=== PATIENT | female | born 1955 | race African-American/Black ===

== ENCOUNTER 2017-11-18 21:27 | Observation (INO) | payer BC, OTHER ==
[2017-11-18] MEDS ORDERED: diphenhydrAMINE 50 MG/ML VIAL ONE (21:52)
[2017-11-18] MEDS ORDERED: Water For Inject, Bacteriostat 30 ML ONE (21:52)
[2017-11-18] MEDS ORDERED: methylPREDNISolone Sod Succ/PF 125 MG/2 ML VIAL ONE (21:52)
[2017-11-18] MEDS ORDERED: Famotidine/PF 20 mg/2ml Vial ONE (21:52)
[2017-11-18 21:54] LABS: Mean Corpuscular HGB CONC 30.7 g/dL (32.0-36.0); Mean Corpuscular Hemoglobin 21.2 pg (27.0-31.0); Mean Corpuscular Volume 69.3 fl (81.0-99.0); Mean Platelet Volume 6.8 fL (7.4-10.4); Platelet Count 312 thou/uL (130-400); Red Blood Cell (RBC) Count 5.18 mill/uL (4.20-5.40); White Blood Cell (WBC) Count 7.7 thou/uL (4.8-10.8)
[2017-11-18 22:00] LABS: #Basophils 0.1 thou/uL (0.0-0.2); #Eosinphils 0.1 thou/uL (0.0-0.7); #Lymphocytes 3.2 thou/uL (1.20-3.40); #Monocytes 0.4 thou/uL (0.11-0.59); %Basophils 1.3 % (0.0-1.0); %Eosinophils 1.2 % (0.0-10.0); %Lymphocytes 41.1 % (21.0-51.0); %Monocytes 5.3 % (0.0-10.0); %Neutrophils 51.2 % (42.0-75.0); Anisocytosis SLIGHT = 6-15 cells (100X) (0-5/hpf); MDiff Complete? YES; Microcytosis SLIGHT = 6-15 cells (100X) (0-5/hpf)
[2017-11-18 22:08] LABS: Anion Gap 18 mmol/L (10-20); BUN (Urea Nitrogen) 44 mg/dL (9.8-20.1); Calc. Creatinine Clearance 0 mL/min (70-130); Calcium 10.6 mg/dL (7.8-10.44); Carbon Dioxide 24 mmol/L (23-31); Chloride 104 mmol/L (98-107); Estimated GFR-MDRD 39; Glucose 231 mg/dL (80-115); Potassium 4.5 mmol/L (3.5-5.1); Sodium 141 mmol/L (136-145)
[2017-11-19 00:21] VITALS: BMI 27.6
[2017-11-19] MEDS ORDERED: Dextrose 5% in Water 1,000 ML IV PRN (01:38)
[2017-11-19] MEDS ORDERED: HumaLOG 300 UNITS/3 ML VIAL SC PRN (01:38)
[2017-11-19] MEDS ORDERED: Dextrose 50% Abboject 50 ML SYRINGE SLOW IVP PRN (01:38)
[2017-11-19] MEDS: Sodium Chloride 0.9% 1,000 ML IV SCH ×2 (02:28→11:28)
[2017-11-19 04:52] LABS: #Neutrophils 7.6 thou/uL (1.40-6.50); %Basophils 0.1 % (0.0-1.0); %Eosinophils 0.1 % (0.0-10.0); %Lymphocytes 11.8 % (21.0-51.0); %Monocytes 0.3 % (0.0-10.0); %Neutrophils 87.7 % (42.0-75.0); Hemoglobin 10.7 g/dL (12.0-16.0); Mean Corpuscular HGB CONC 32.5 g/dL (32.0-36.0); Mean Corpuscular Hemoglobin 22.7 pg (27.0-31.0); Mean Corpuscular Volume 69.6 fl (81.0-99.0); Mean Platelet Volume 7.9 fL (7.4-10.4); Platelet Count 278 thou/uL (130-400); RBC Distribution Width 13.4 % (11.5-14.5); Red Blood Cell (RBC) Count 4.71 mill/uL (4.20-5.40); White Blood Cell (WBC) Count 8.7 thou/uL (4.8-10.8)
[2017-11-19 05:05] LABS: ALT (SGPT) 12 U/L (8-55); AST (SGOT) 12 U/L (5-34); Albumin 4.2 g/dL (3.4-4.8); Alkaline Phosphatase 49 U/L (40-150); Anion Gap 13 mmol/L (10-20); BUN (Urea Nitrogen) 44 mg/dL (9.8-20.1); Bilirubin, Total 0.2 mg/dL (0.2-1.2); Calc. Creatinine Clearance 45 mL/min (70-130); Carbon Dioxide 23 mmol/L (23-31); Chloride 106 mmol/L (98-107); Estimated GFR-MDRD 45; Glucose 267 mg/dL (80-115); Potassium 4.9 mmol/L (3.5-5.1); Protein, Total 7.2 g/dL (6.0-8.3); Sodium 137 mmol/L (136-145)
[2017-11-19] MEDS: diphenhydrAMINE 12.5 MG/5 ML UDCUP PO SCH ×2 (05:45→11:30)
[2017-11-19] MEDS ORDERED: glyBURIDE 5 MG TAB PO SCH (08:00)
[2017-11-19] MEDS ORDERED: metFORMIN 500 MG TAB PO SCH (08:00)
[2017-11-19] MEDS ORDERED: predniSONE 20 MG TAB PO SCH (08:00)
[2017-11-19] MEDS ORDERED: Famotidine 20 MG TAB PO SCH (09:00)
[2017-11-19] MEDS ORDERED: Heparin 5,000 UNITS/ML VIAL SC SCH (09:00)
[2017-11-19] MEDS ORDERED: Triamterene/Hydrochlorothiazide 37.5 mg/25 mg Tablet PO SCH (09:00)
[2017-11-19] MEDS ORDERED: Zantac Syrup 75 MG/5 ML UDCUP PO SCH (09:00)
--- NOTE | 2017-11-19 11:24 | HP ---
PRIMARY CARE PHYSICIAN: Dr. Ley. CHIEF COMPLAINT: Swelling of the upper lip. HISTORY OF PRESENT ILLNESS: A 61-year-old female with a known past medical history of hypertension, type 2 diabetes, who presents after acute swelling of her upper lip while eating dinner at [facility]. The patient states that she had a burger which she's had before in the past but she felt was slightly undercooked, subsequently she had swelling of her upper lip that prompted her presentation to the emergency department. In the emergency department, she was given a dose of steroid, Benadryl, Zantac. At the time of my evaluation on the floor, the patient states that her swelling significantly improved. During this entire ordeal, the patient denies having had any difficulty with swallowing her own saliva. Denies any difficulty with breathing. Denies any changes to her voice. REVIEW OF SYSTEMS: As per HPI. Constitutional: No recent weight fluctuations. No fevers, no chills. HEENT: No new headaches, dizziness or lightheadedness. Swelling as described above. Cardiovascular: No chest pain or chest pressure. No dyspnea with exertion. No left-sided arm numbness or tingling. No episodes of diaphoresis. Respiratory: No difficulty breathing. No new cough. No new sinus congestion or postnasal drip. Gastrointestinal: No nausea, no vomiting, no abdominal pain, no issues with diarrhea. No one else had a similar reaction as the patient during supper. Musculoskeletal: No new myalgias or arthralgias. Skin: No new rashes or lymphadenopathy. Remainder of the review of systems otherwise negative. PAST MEDICAL HISTORY: As per above, 1. Notable for hypertension. 2. Insulin-dependent type 2 diabetes. 3. Status post right leg surgery as a child. HOME MEDICATIONS: Please see EMR for full details. Her list includes triamterene/hydrochlorothiazide 1 cap p.o. daily, glyburide/metformin 2 tabs p.o. b.i.d., lisinopril 20 mg p.o. daily, Lantus 4 units at bedtime. The patient denies any recent changes to her regimen. She has not had any new elzt-wwu-xbroric herbals or vitamins added to her regimen in last month. She has been on lisinopril for more than 3 months. FAMILY HISTORY: The patient denies any prior similar history of family members with swelling or allergies with similar reactions. SOCIAL HISTORY: The patient denies any tobacco, alcohol or illicit drug use. Endorses to be in full code at this point in time. PHYSICAL EXAMINATION: VITAL SIGNS: Temperature of 97.8, heart rate of 108, blood pressure 117/61, satting 96% on room air with respirations of 18. GENERAL: The patient is awake, alert, conversant, oriented x3, no acute distress, seated in the hospital bed. HEENT: Normocephalic, atraumatic. Moist mucous membranes. Equal ocular motions are intact. has subjective swelling, nonedematous of her upper lip. No erythema noted. No urticaria. NECK: No submandibular or cervical lymphadenopathy. CARDIOVASCULAR: S1, S2. No murmurs, rubs or gallops. Pulses 2+ bilateral upper extremities. RESPIRATORY: Reasonable air movement. No wheezes, rales or rhonchi. No stridorous sounds noted. No conversational dyspnea. ABDOMEN: Positive bowel sounds, soft, nontender to palpation. MUSCULOSKELETAL: Moving all 4 extremities. LABORATORY DATA AND IMAGING: WBC 7.7, hemoglobin 11.0, hematocrit 39.5, platelets 312. Sodium 141, potassium 4.5, chloride 104, bicarb 24, BUN 44, creatinine 1.61, glucose 231, calcium 10.6. ASSESSMENT AND PLAN: A 61-year-old female presenting with upper lip swelling. 1. Upper lip swelling, concern for angioedema. Continue with management as per above. Continue with prednisone, Benadryl, Pepcid. I discussed the plan with the patient. Discontinue lisinopril, which could be a potential offending agent. Closely monitor blood pressure. Check CRP, ESR, C4 levels. 2. Hypertension. See discussion above. Continue the remainder of the patient' s home medications for blood pressure and closely monitor. Additional medication regimen adjustment as needed. 3. Type 2 diabetes, insulin dependence. Continue the patient on home regimen with sliding scale insulin if needed given the addition of prednisone which may elevate blood glucose levels. 4. Acute kidney injury, unknown baseline, BUN of 44, creatinine 1.61. Initiate the patient on IV fluid normal saline 100 mL an hour. Recheck BMP in the morning. 5. Diet: Diabetic, as tolerated. 6. Activity: Out of bed as tolerated. 7. Deep venous thrombosis prophylaxis, heparin. Thank you for asking me to care for your patient. Questions or concerns, contact me in [facility]. TIARRA
--- NOTE | 2017-11-19 11:38 | PDOC.EVN ---
Event Note - Event Note Event Note: Pt seen and examined. reports that lip swelling is much better.no SOB/difficulty w speech/swollowing cont H1/H2 blockers and po steroids. if continues to improve,DC home later today
[2017-11-19 15:40] VITALS: BP 106/67; TEMP 98.2
[2017-11-19] MEDS ORDERED: INSULIN GLARGINE HUM REC ANLOG SQ SCH (21:00)
[2017-11-19] MEDS ORDERED: Insulin Detemir 100 UNITS/ML 4 UNITS in Pre-Filled Syringe 1 EACH SC SCH (21:00)
--- NOTE | 2017-11-20 00:21 | DIS ---
DATE OF ADMISSION: 11/19/2017 DATE OF DISCHARGE: 11/19/2017 CONDITION AT THE TIME OF DISCHARGE: Stable and improved. DISCHARGE DIAGNOSES: 1. Angioedema, most likely secondary to lisinopril use. 2. History of hypertension. 3. Insulin-dependent diabetes mellitus. PRIMARY CARE PHYSICIAN: Dr. Orlando Ley. DISCHARGE MEDICATIONS: Pepcid 20 mg p.o. b.i.d. for 5 days, Benadryl 12.5 mg p.o. q.6 hours for 2 mo re days and Medrol Dosepak. HISTORY OF PRESENTING ILLNESS: Ms. Peterson was admitted earlier this morning for complaints of sudden onset of swelling of her lip. She was diagnosed as angioedema likely secondary to lisinopril in the emergency room and was given IV steroids, IV Benadryl and IV Pepcid and was admitted by my colleague , Dr. Mckeon. Please see admission history and physical for further details. HOSPITAL COURSE: The patient had significant improvement in her symptoms throughout the rest of the day and is back to baseline and is eager to go home. I have seen and evaluated the patient. Her vit al signs at this time are temperature 98.4, heart rate 118, respirations 16, saturating 96% on room a ir, blood pressure 117/60. No acute distress, awake, alert, oriented x3. HEENT examination, still s ome residual swelling on the upper lip without any evidence of tongue swelling or laryngopharyngeal s welling. No dysphagia or dysarthria or dysphonia noticed. No respiratory distress noticed. At this time, the patient is stable to be discharged home with outpatient followup with primary care physician in 5-6 days. LABORATORY EXAMINATION: Her creatinine was found to be elevated at 1.61 without any baseline. Disch arge creatinine is 1.43. She most likely has chronic kidney disease attributable to diabetes and/or hypertension. This will need to be followed up in the outpatient setting as well.
== END 2017-11-19 16:06 | disposition home or self-care (01) ==
LOC: SCSER 21:27 → 2SW 23:25
PROVIDERS: ADMIT Internal Medicine; ATTEND Internal Medicine
DX: T78.3XXA Angioneurotic edema, initial encounter (principal); I10 Essential (primary) hypertension; E11.9 Type 2 diabetes mellitus without complications; N17.9 Acute kidney failure, unspecified; Z79.4 Long term (current) use of insulin; Z79.899 Other long term (current) drug therapy; Z88.8 Allergy status to other drugs, medicaments and biological substances
CPT/HCPCS: 36415; 36416; 80048; 80053; 85025; 85652; 86140; 90471; 90732; 96361; 96374; 96375; A4216; G0009; G0378; J1200; J1644; J1815; J2930; J7506; S0028

== ENCOUNTER 2017-12-06 17:09 | Emergency (ER) | payer BC | END 2017-12-06 19:18 | disposition home or self-care (01) | LOC: ERS 17:09 | DX: I10 Essential (primary) hypertension (principal); E11.9 Type 2 diabetes mellitus without complications; Z79.4 Long term (current) use of insulin; Z79.899 Other long term (current) drug therapy; Z87.891 Personal history of nicotine dependence | CPT/HCPCS: 99281 ==

== ENCOUNTER 2022-04-16 20:46 | Inpatient (IN) | payer BC ==
[~2022-04-16 20:46] MED LIST: Iopamidol-370 76% 500 ML 1 ML ONE
[2022-04-16] MEDS ORDERED: Acetaminophen 325 MG Suppository ONE (21:38)
[2022-04-16] MEDS ORDERED: Cefepime 2 GM VIAL ONE (21:38)
[2022-04-16] MEDS ORDERED: Vancomycin 1 GM/200 ML BAG ONE (21:38)
[2022-04-16 21:52] LABS: #Monocytes 0.9 thou/uL (0.11-0.59); #Neutrophils 6.2 thou/uL (1.40-6.50); %Basophils 0.1 % (0.0-1.0); %Lymphocytes 12.3 % (21.0-51.0); %Monocytes 10.6 % (0.0-10.0); Hemoglobin 11.5 g/dL (12.0-16.0); Mean Corpuscular HGB CONC 32.2 g/dL (32.0-36.0); Mean Corpuscular Hemoglobin 22.2 pg (27.0-31.0); Mean Corpuscular Volume 68.8 fL (78.0-98.0); Mean Platelet Volume 11.4 fL (7.4-10.4); Platelet Count 199 thou/uL (130-400); RBC Distribution Width 14.1 % (11.5-14.5); White Blood Cell (WBC) Count 8.1 thou/uL (4.8-10.8)
[2022-04-16 22:01] LABS: INR-International Normal Ratio 1.1; PTT 30.7 sec (22.9-36.1); Prothrombin Time 13.9 sec (12.0-14.7)
[2022-04-16 22:11] LABS: Elliptocytes SLIGHT = 2-5 cells (100X) (0-1/hpf); MDiff Complete? YES; Microcytosis MODERATE=15-30 cells (100X) (0-5/hpf); Platelet Morphology Comment Appears Adequate; Target Cells MODERATE= 6-15 cells (100X) (0-1/hpf)
[2022-04-16 22:13] LABS: ALT (SGPT) 56 U/L (8-55); AST (SGOT) 53 U/L (5-34); Albumin 4.5 g/dL (3.4-4.8); Alkaline Phosphatase 40 U/L (40-110); Anion Gap 19 mmol/L (10-20); BUN (Urea Nitrogen) 26 mg/dL (9.8-20.1); Bilirubin, Total 0.3 mg/dL (0.2-1.2); Calc. Creatinine Clearance 0 mL/min (70-130); Calcium 10.6 mg/dL (7.8-10.44); Carbon Dioxide 22 mmol/L (23-31); Chloride 105 mmol/L (98-107); Estimated GFR 40; Globulin 3.3 g/dL (2.4-3.5); Glucose 184 mg/dL (80-115); Potassium 4.3 mmol/L (3.5-5.1); Protein, Total 7.8 g/dL (5.8-8.1); Sodium 142 mmol/L (136-145)
[2022-04-16 22:17] LABS: Bilirubin Negative (Negative); Blood, Urine Negative (Negative); Clarity Clear (Clear); Glucose, Urine (Dipstick) 150 mg/dL (Negative); Ketone, Urine Negative (Negative); Leukocyte Negative Leu/uL (Negative); Nitrite Negative (Negative); Protein, Urine (Dipstick) Negative (Neg-Trace); Specific Gravity, Urine 1.017 (1.002-1.036); Urobilinogen Normal mg/dL (Less than 2)
[2022-04-17 00:30] LABS: SARS-CoV-2 NAA Rapid Test DETECTED (NotDetected)
[2022-04-17] MEDS ORDERED: Ondansetron PF 4 MG/2 ML Vial IVP PRN (01:06)
[2022-04-17] MEDS ORDERED: Acetaminophen 325 MG TAB PO PRN (01:06)
[2022-04-17] MEDS ORDERED: Dextrose 50% Abboject 50 ML SYRINGE SLOW IVP PRN (01:14)
[2022-04-17] MEDS ORDERED: Dextrose 5% in Water 1,000 ML IV PRN (01:14)
[2022-04-17] MEDS ORDERED: Sodium Chloride 0.9% 1,000 ML IV SCH ×2 (01:15→10:45)
[2022-04-17 01:18] LABS: Lactic Acid 2.3 mmol/L (0.5-2.2)
[2022-04-17] MEDS ORDERED: Bisacodyl 10 MG SUPP PR SCH (01:30)
[2022-04-17 03:47] LABS: #Lymphocytes 1.1 thou/uL (1.20-3.40); #Monocytes 1.1 thou/uL (0.11-0.59); #Neutrophils 5.4 thou/uL (1.40-6.50); %Basophils 0.2 % (0.0-1.0); %Eosinophils 0.1 % (0.0-10.0); %Lymphocytes 14.2 % (21.0-51.0); %Monocytes 13.9 % (0.0-10.0); %Neutrophils 71.6 % (42.0-75.0); Hemoglobin 10.7 g/dL (12.0-16.0); Mean Corpuscular HGB CONC 33.2 g/dL (32.0-36.0); Mean Corpuscular Hemoglobin 23.1 pg (27.0-31.0); Mean Corpuscular Volume 69.6 fL (78.0-98.0); Mean Platelet Volume 11.5 fL (7.4-10.4); Platelet Count 174 thou/uL (130-400); Red Blood Cell (RBC) Count 4.62 mill/uL (4.20-5.40); White Blood Cell (WBC) Count 7.6 thou/uL (4.8-10.8)
[2022-04-17 03:51] VITALS: BMI 23.9
[2022-04-17 04:07] LABS: ALT (SGPT) 60 U/L (8-55); AST (SGOT) 64 U/L (5-34); Albumin 3.7 g/dL (3.4-4.8); Alkaline Phosphatase 32 U/L (40-110); Anion Gap 17 mmol/L (10-20); BUN (Urea Nitrogen) 24 mg/dL (9.8-20.1); Bilirubin, Total 0.2 mg/dL (0.2-1.2); Calc. Creatinine Clearance 45 mL/min (70-130); Calcium 9.3 mg/dL (7.8-10.44); Carbon Dioxide 19 mmol/L (23-31); Chloride 107 mmol/L (98-107); Estimated GFR 43; Globulin 2.7 g/dL (2.4-3.5); Glucose 345 mg/dL (80-115); Potassium 3.7 mmol/L (3.5-5.1); Protein, Total 6.4 g/dL (5.8-8.1); Sodium 139 mmol/L (136-145)
[2022-04-17 04:12] LABS: Troponin I 0.013 ng/mL (< 0.028)
[2022-04-17] MEDS: HumaLOG 300 UNITS/3 ML VIAL SC PRN ×2 (06:45→21:28)
[2022-04-17 07:29] LABS: Troponin I 0.025 ng/mL (< 0.028)
[2022-04-17] MEDS: Docusate 100 MG CAP PO SCH ×2 (09:08→21:27)
[2022-04-17] MEDS: Ascorbic Acid 500 mg Chewable Tablet PO SCH (09:08)
[2022-04-17] MEDS: Zinc Sulfate 220 MG CAP PO SCH (09:09)
[2022-04-17] MEDS: Polyethylene Glycol 3350 17 GM Packet PO SCH (09:09)
[2022-04-17] MEDS: Enoxaparin Sodium 40 MG/0.4 ML SYRINGE SC SCH (09:09)
[2022-04-17] MEDS: Insulin Glargine 30 UNITS/0.3 ML VIAL SC SCH ×2 (09:09→21:27)
[2022-04-17] MEDS ORDERED: Piperacillin/Tazobactam 3.375 GM in Sodium Chloride 0.9% 100 ML IVPB SCH ×2 (13:45→18:00)
[2022-04-18 04:54] LABS: #Basophils 0.1 thou/uL (0.0-0.2); #Lymphocytes 2.2 thou/uL (1.20-3.40); #Monocytes 0.6 thou/uL (0.11-0.59); #Neutrophils 2.1 thou/uL (1.40-6.50); %Basophils 1.3 % (0.0-1.0); %Eosinophils 0.1 % (0.0-10.0); %Lymphocytes 44.4 % (21.0-51.0); %Neutrophils 43.2 % (42.0-75.0); Mean Corpuscular HGB CONC 32.7 g/dL (32.0-36.0); Mean Corpuscular Hemoglobin 22.5 pg (27.0-31.0); Mean Corpuscular Volume 68.9 fL (78.0-98.0); Mean Platelet Volume 11.7 fL (7.4-10.4); Platelet Count 191 thou/uL (130-400); RBC Distribution Width 14.2 % (11.5-14.5); Red Blood Cell (RBC) Count 5.34 mill/uL (4.20-5.40)
[2022-04-18 05:17] LABS: ALT (SGPT) 90 U/L (8-55); AST (SGOT) 76 U/L (5-34); Albumin 4.1 g/dL (3.4-4.8); Alkaline Phosphatase 38 U/L (40-110); Anion Gap 16 mmol/L (10-20); BUN (Urea Nitrogen) 16 mg/dL (9.8-20.1); Bilirubin, Total 0.3 mg/dL (0.2-1.2); Calc. Creatinine Clearance 52 mL/min (70-130); Calcium 10.1 mg/dL (7.8-10.44); Carbon Dioxide 24 mmol/L (23-31); Chloride 107 mmol/L (98-107); Estimated GFR 50; Glucose 224 mg/dL (80-115); Potassium 3.3 mmol/L (3.5-5.1); Protein, Total 7.1 g/dL (5.8-8.1); Sodium 144 mmol/L (136-145)
[2022-04-18] MEDS: Piperacillin/Tazobactam 3.375 GM in Sodium Chloride 0.9% 100 ML IVPB SCH ×3 (05:39→21:24)
[2022-04-18] MEDS: Ascorbic Acid 500 mg Chewable Tablet PO SCH (10:44)
[2022-04-18] MEDS: Docusate 100 MG CAP PO SCH ×2 (10:44→21:23)
[2022-04-18] MEDS: Insulin Glargine 30 UNITS/0.3 ML VIAL SC SCH ×2 (10:44→21:23)
[2022-04-18] MEDS: Enoxaparin Sodium 40 MG/0.4 ML SYRINGE SC SCH (10:45)
[2022-04-18] MEDS: HumaLOG 300 UNITS/3 ML VIAL SC PRN ×3 (10:46→21:32)
[2022-04-18] MEDS: Zinc Sulfate 220 MG CAP PO SCH (10:49)
[2022-04-18] MEDS: Polyethylene Glycol 3350 17 GM Packet PO SCH (10:49)
[2022-04-18] MEDS ORDERED: Potassium Chloride 20 MEQ TAB PO SCH (12:15)
[2022-04-18] MEDS ORDERED: Electrolyte Replacement Protocol 1 EACH FS SCH (12:15)
[2022-04-18 12:30] LABS: Magnesium 1.4 mg/dL (1.6-2.6)
[2022-04-18] MEDS ORDERED: (RENAL) NIRMATRELVIR 150 MG/RITONAVIR 100 MG TABLET PO SCH (13:15)
[2022-04-18] MEDS ORDERED: Magnesium Sulfate In Water 4 GM in Premix Bag 1 BAG IVPB SCH (13:45)
[2022-04-18] MEDS ORDERED: Melatonin 3 MG TAB PO SCH (21:00)
[2022-04-18] MEDS ORDERED: Latanoprost 0.005% Ophth Soln 2.5 ml Bottle EA EYE SCH (21:00)
[2022-04-18] MEDS: (RENAL) NIRMATRELVIR 150 MG/RITONAVIR 100 MG TABLET PO SCH (21:24)
[2022-04-19 04:47] LABS: Anion Gap 14 mmol/L (10-20); BUN (Urea Nitrogen) 14 mg/dL (9.8-20.1); Calc. Creatinine Clearance 52 mL/min (70-130); Calcium 9.9 mg/dL (7.8-10.44); Carbon Dioxide 26 mmol/L (23-31); Chloride 106 mmol/L (98-107); Estimated GFR 51; Glucose 97 mg/dL (80-115); Potassium 3.6 mmol/L (3.5-5.1); Sodium 142 mmol/L (136-145)
[2022-04-19] MEDS: Piperacillin/Tazobactam 3.375 GM in Sodium Chloride 0.9% 100 ML IVPB SCH ×2 (05:23→14:08)
[2022-04-19] MEDS ORDERED: Magnesium 2 GM/50 ML(in water) 2 GM in Premix Bag 1 BAG IVPB SCH (08:00)
[2022-04-19] MEDS ORDERED: Fenofibrate Nanocrystallized 145 MG TAB PO SCH (09:00)
[2022-04-19] MEDS: (RENAL) NIRMATRELVIR 150 MG/RITONAVIR 100 MG TABLET PO SCH (09:21)
[2022-04-19] MEDS: Ascorbic Acid 500 mg Chewable Tablet PO SCH (09:23)
[2022-04-19] MEDS: Insulin Glargine 30 UNITS/0.3 ML VIAL SC SCH (09:23)
[2022-04-19] MEDS: Enoxaparin Sodium 40 MG/0.4 ML SYRINGE SC SCH (09:24)
[2022-04-19] MEDS: Polyethylene Glycol 3350 17 GM Packet PO SCH (09:24)
[2022-04-19] MEDS: Zinc Sulfate 220 MG CAP PO SCH (09:24)
[2022-04-19] MEDS: Docusate 100 MG CAP PO SCH (09:24)
[2022-04-19 13:53] VITALS: BP 132/74; TEMP 97
== END 2022-04-19 13:45 | disposition home or self-care (01) | DRG 871 ==
LOC: ERS 20:46 → IMCU/EMU 04-17 00:58 → 2NO 04-17 19:00
PROVIDERS: ADMIT Family Medicine; ATTEND Family Medicine
PROC: 3E03329 Introduction of Other Anti-infective into Peripheral Vein, Percutaneous Approach (ICD-10-PCS; principal; 2022-04-17)
PROC: 8E0ZXY6 Isolation (ICD-10-PCS; 2022-04-17)
DX: A41.89 Other specified sepsis (principal); G93.41 Metabolic encephalopathy; U07.1 COVID-19; N17.9 Acute kidney failure, unspecified; G30.9 Alzheimer's disease, unspecified; F02.80 Dementia in other diseases classified elsewhere, unspecified severity, without behavioral disturbance, psychotic disturbance, mood disturbance, and anxiety; E11.69 Type 2 diabetes mellitus with other specified complication; K59.00 Constipation, unspecified; E78.5 Hyperlipidemia, unspecified; N18.30 Chronic kidney disease, stage 3 unspecified; E11.22 Type 2 diabetes mellitus with diabetic chronic kidney disease; I12.9 Hypertensive chronic kidney disease with stage 1 through stage 4 chronic kidney disease, or unspecified chronic kidney disease; G47.00 Insomnia, unspecified; H40.9 Unspecified glaucoma; E87.6 Hypokalemia; E83.42 Hypomagnesemia; Z79.4 Long term (current) use of insulin; Z79.899 Other long term (current) drug therapy; Z88.8 Allergy status to other drugs, medicaments and biological substances
CPT/HCPCS: 36415; 36416; 70450; 71045; 74177; 80048; 80053; 81003; 83605; 83735; 84484; 85025; 85610; 85730; 87040; 87086; 93005; 93010; 94760; J0692; J1650; J1815; J2543; J3370; J3475; J3490; J7050; Q9967; U0002

== ENCOUNTER 2022-04-19 22:14 | Emergency (ER) | payer MEDICARE, BC | END 2022-04-19 22:49 | disposition home or self-care (01) | LOC: ERS 22:14 | DX: E11.65 Type 2 diabetes mellitus with hyperglycemia (principal); I10 Essential (primary) hypertension; Z87.891 Personal history of nicotine dependence; Z79.4 Long term (current) use of insulin; Z79.899 Other long term (current) drug therapy | CPT/HCPCS: 36416; 99285 ==

== ENCOUNTER 2025-06-24 07:50 | Inpatient (IN) | payer BC, MEDICARE ==
[2025-06-24 09:25] LABS: INR-International Normal Ratio 1.1; PTT 30.6 sec (22.9-36.1); Prothrombin Time 14.8 sec (12.0-14.7)
[2025-06-24 09:42] LABS: ALT (SGPT) 40 U/L (Less than 34); AST (SGOT) 42 U/L (11-34); Albumin 3.4 g/dL (3.1-4.5); Alkaline Phosphatase 34 U/L (40-110); Anion Gap 13 mmol/L (10-20); BUN (Urea Nitrogen) 25 mg/dL (9.8-20.1); Bilirubin, Total 0.3 mg/dL (0.3-1.2); Calc. Creatinine Clearance 0 mL/min (70-130); Calcium 11.0 mg/dL (7.8-10.44); Carbon Dioxide 24 mmol/L (23-31); Chloride 124 mmol/L (98-107); Globulin 3.1 g/dL (2.4-3.5); Glucose 171 mg/dL (83-110); Lipase 41 U/L (8-78); Magnesium 2.1 mg/dL (1.6-2.6); Potassium 3.9 mmol/L (3.5-5.1); Sodium 157 mmol/L (136-145)
[2025-06-24 11:10] LABS: #Basophils 0.03 10x3/uL (0.0-0.2); #Eosinophils 0.04 10x3/uL (0.0-0.7); #Monocytes 0.32 10x3/uL (0.11-0.59); #Neutrophils 4.70 10x3/uL (1.40-6.50); %Basophils 0.4 % (0.0-1.0); %Eosinophils 0.6 % (0.0-10.0); %Lymphocytes 28.2 % (21.0-51.0); %Monocytes 4.5 % (0.0-10.0); %Neutrophils 65.7 % (42.0-75.0); Hematocrit 29.6 % (36.0-47.0); Hemoglobin 8.9 g/dL (12.0-16.0); Mean Corpuscular Hemoglobin 19.7 pg (27.0-31.0); Mean Corpuscular Volume 65.6 fL (78.0-98.0); Platelet Count 359 10x3/uL (130-400); Red Blood Cell (RBC) Count 4.51 mill/uL (4.20-5.40); White Blood Cell (WBC) Count 7.14 10x3/uL (4.8-10.8)
[2025-06-24 11:31] LABS: Anisocytosis MARKED = >30 cells HPF (0-5); Burr Cells SLIGHT = 2-5 cells HPF (0-1); Macrocytosis MODERATE=16-30 cells HPF (0-5); Microcytosis SLIGHT = 6-15 cells HPF (0-5); Platelet Adequacy Comment Platelets Normal; Polychromasia SLIGHT = 2-3 cells HPF (0-2); Reflex for Review?? YES; Schistocytes MODERATE= 6-15 cells HPF (0-1); Target Cells SLIGHT = 2-5 cells HPF (0-1)
[2025-06-24] MEDS ORDERED: Iopamidol-370 76% 500 ML MDV (1 ML CHARGE) ONE (11:43)
[2025-06-24] MEDS ORDERED: Pantoprazole 40 MG VIAL ONE (12:59)
[2025-06-24] MEDS ORDERED: Glucagon 1 MG/ML KIT IM PRN (14:35)
[2025-06-24] MEDS ORDERED: Ondansetron PF 4 MG/2 ML Vial IVP PRN (14:35)
[2025-06-24] MEDS ORDERED: Dextrose 50% Abboject 50 ML SYRINGE SLOW IVP PRN (14:35)
[2025-06-24 16:17] VITALS: BMI 14.9
[2025-06-24 21:44] LABS: Anion Gap 12 mmol/L (10-20); BUN (Urea Nitrogen) 18 mg/dL (9.8-20.1); Calc. Creatinine Clearance 35 mL/min (70-130); Calcium 10.1 mg/dL (7.8-10.44); Carbon Dioxide 23 mmol/L (23-31); Chloride 122 mmol/L (98-107); Glucose 149 mg/dL (83-110); Potassium 3.4 mmol/L (3.5-5.1); Sodium 154 mmol/L (136-145)
[2025-06-25] MEDS: Melatonin 3 MG TAB PO PRN (00:18)
[2025-06-25] MEDS: Acetaminophen 325 MG TAB PO PRN (00:18)
[2025-06-25 06:04] LABS: #Basophils Less than 0.03 10x3/uL (0.0-0.2); #Eosinophils 0.07 10x3/uL (0.0-0.7); #Monocytes 0.33 10x3/uL (0.11-0.59); #Neutrophils 3.66 10x3/uL (1.40-6.50); %Basophils 0.3 % (0.0-1.0); %Eosinophils 1.1 % (0.0-10.0); %Lymphocytes 34.8 % (21.0-51.0); %Monocytes 5.3 % (0.0-10.0); %Neutrophils 58.3 % (42.0-75.0); Hematocrit 23.1 % (36.0-47.0); Hemoglobin 7.0 g/dL (12.0-16.0); Mean Corpuscular Hemoglobin 19.6 pg (27.0-31.0); Mean Corpuscular Volume 64.5 fL (78.0-98.0); Platelet Count 281 10x3/uL (130-400); Red Blood Cell (RBC) Count 3.58 mill/uL (4.20-5.40); White Blood Cell (WBC) Count 6.27 10x3/uL (4.8-10.8)
[2025-06-25 06:41] LABS: ALT (SGPT) 28 U/L (Less than 34); AST (SGOT) 32 U/L (11-34); Albumin 2.7 g/dL (3.1-4.5); Alkaline Phosphatase 26 U/L (40-110); Anion Gap 10 mmol/L (10-20); BUN (Urea Nitrogen) 20 mg/dL (9.8-20.1); Bilirubin, Total 0.2 mg/dL (0.3-1.2); Calc. Creatinine Clearance 34 mL/min (70-130); Calcium 9.3 mg/dL (7.8-10.44); Carbon Dioxide 25 mmol/L (23-31); Chloride 116 mmol/L (98-107); Globulin 2.8 g/dL (2.4-3.5); Glucose 309 mg/dL (83-110); Iron 38 ug/dL (50-170); Iron Binding Capacity, Total 360 mcg/dL (265-497); Potassium 3.3 mmol/L (3.5-5.1); Sodium 148 mmol/L (136-145)
[2025-06-25 06:43] LABS: Iron 36 ug/dL (50-170); Iron Binding Capacity, Total 361 mcg/dL (265-497)
[2025-06-25] MEDS: Enoxaparin 40 MG (0.4 mL) SYRINGE SC SCH (08:29)
[2025-06-25] MEDS: Aspirin Chewable 81 MG TAB PO SCH (08:29)
[2025-06-25] MEDS: metFORMIN 500 MG TAB PO SCH (08:29)
[2025-06-25] MEDS: Mupirocin 1 GM TUBE TP SCH (08:42)
[2025-06-25] MEDS: Pantoprazole 40 MG VIAL IVP SCH (08:43)
[2025-06-25] MEDS ORDERED: PROPOFOL 200 MG/20 ML VIAL ONE (11:23)
[2025-06-25] MEDS ORDERED: PHENYLEPHRINE-NS 100 MCG/ML 10 ML SYRINGE ONE (11:24)
[2025-06-26 06:55] LABS: Anion Gap 12 mmol/L (10-20); BUN (Urea Nitrogen) 19 mg/dL (9.8-20.1); Calc. Creatinine Clearance 35 mL/min (70-130); Calcium 8.8 mg/dL (7.8-10.44); Carbon Dioxide 19 mmol/L (23-31); Chloride 111 mmol/L (98-107); Glucose 288 mg/dL (83-110); Potassium 3.7 mmol/L (3.5-5.1); Sodium 138 mmol/L (136-145)
[2025-06-26 07:05] LABS: #Basophils Less than 0.03 10x3/uL (0.0-0.2); #Eosinophils 0.11 10x3/uL (0.0-0.7); #Monocytes 0.40 10x3/uL (0.11-0.59); #Neutrophils 4.36 10x3/uL (1.40-6.50); %Basophils 0.3 % (0.0-1.0); %Eosinophils 1.4 % (0.0-10.0); %Lymphocytes 36.6 % (21.0-51.0); %Monocytes 5.2 % (0.0-10.0); %Neutrophils 56.2 % (42.0-75.0); Hematocrit 20.4 % (36.0-47.0); Hemoglobin 6.2 g/dL (12.0-16.0); Mean Corpuscular Hemoglobin 19.3 pg (27.0-31.0); Mean Corpuscular Volume 63.6 fL (78.0-98.0); Platelet Count 249 10x3/uL (130-400); Red Blood Cell (RBC) Count 3.21 mill/uL (4.20-5.40); White Blood Cell (WBC) Count 7.75 10x3/uL (4.8-10.8)
[2025-06-26] MEDS: Enoxaparin 30 MG (0.3 mL) SYRINGE SC SCH (08:36)
[2025-06-26 17:47] LABS: Hematocrit 26.4 % (36.0-47.0); Hemoglobin 8.4 g/dL (12.0-16.0)
[2025-06-27 05:56] LABS: #Basophils Less than 0.03 10x3/uL (0.0-0.2); #Eosinophils 0.14 10x3/uL (0.0-0.7); #Monocytes 0.48 10x3/uL (0.11-0.59); #Neutrophils 4.40 10x3/uL (1.40-6.50); %Basophils 0.3 % (0.0-1.0); %Eosinophils 1.8 % (0.0-10.0); %Lymphocytes 34.2 % (21.0-51.0); %Monocytes 6.2 % (0.0-10.0); %Neutrophils 57.1 % (42.0-75.0); Hematocrit 23.6 % (36.0-47.0); Hemoglobin 7.7 g/dL (12.0-16.0); Mean Corpuscular Hemoglobin 21.9 pg (27.0-31.0); Mean Corpuscular Volume 67.0 fL (78.0-98.0); Platelet Count 253 10x3/uL (130-400); Red Blood Cell (RBC) Count 3.52 mill/uL (4.20-5.40); White Blood Cell (WBC) Count 7.71 10x3/uL (4.8-10.8)
[2025-06-27 06:15] LABS: Anion Gap 10 mmol/L (10-20); BUN (Urea Nitrogen) 12 mg/dL (9.8-20.1); Calc. Creatinine Clearance 42 mL/min (70-130); Calcium 9.3 mg/dL (7.8-10.44); Carbon Dioxide 23 mmol/L (23-31); Chloride 111 mmol/L (98-107); Glucose 270 mg/dL (83-110); Potassium 3.9 mmol/L (3.5-5.1); Sodium 140 mmol/L (136-145)
[2025-06-27] MEDS: Pantoprazole 40 MG DR.TAB PO SCH (08:10)
[2025-06-27 12:30] LABS: Iron 68 ug/dL (50-170); Iron Binding Capacity, Total 410 mcg/dL (265-497)
[2025-06-27 15:59] VITALS: BMI 14.8
[2025-06-27] MEDS: Sodium Ferric Gluconate 250 MG in Sodium Chloride 0.9% 250 ML 250 ML IVPB SCH (17:33)
[2025-06-28 11:10] LABS: Crenated RBC MODERATE= 6-15 cells (100X) (None Seen); Ovalocytes MODERATE= 6-15 cells (100X) (0-1/hpf); Plasma Cells 0 % (0-0); Platelet Adequacy Comment Appears Adequate; Target Cells SLIGHT = 2-5 cells (100X) (0-1/hpf)
[2025-06-28 11:11] LABS: #Basophils Less than 0.03 10x3/uL (0.0-0.2); #Eosinophils 0.05 10x3/uL (0.0-0.7); #Monocytes 0.69 10x3/uL (0.11-0.59); #Neutrophils 9.13 10x3/uL (1.40-6.50); %Basophils 0.2 % (0.0-1.0); %Eosinophils 0.4 % (0.0-10.0); %Lymphocytes 14.2 % (21.0-51.0); %Monocytes 6.0 % (0.0-10.0); %Neutrophils 78.8 % (42.0-75.0); Hematocrit 30.5 % (36.0-47.0); Hemoglobin 10.1 g/dL (12.0-16.0); Mean Corpuscular Hemoglobin 22.1 pg (27.0-31.0); Mean Corpuscular Volume 66.6 fL (78.0-98.0); Platelet Count 156 10x3/uL (130-400); Red Blood Cell (RBC) Count 4.58 mill/uL (4.20-5.40); White Blood Cell (WBC) Count 11.58 10x3/uL (4.8-10.8)
[2025-06-28] MEDS: Nystatin 500,000 UNITS/5 ML UDCUP SSW SCH (13:07)
[2025-06-28 13:32] LABS: Anion Gap 19 mmol/L (10-20); BUN (Urea Nitrogen) 7 mg/dL (9.8-20.1); Calc. Creatinine Clearance 52 mL/min (70-130); Calcium 10.2 mg/dL (7.8-10.44); Carbon Dioxide 20 mmol/L (23-31); Chloride 108 mmol/L (98-107); Glucose 263 mg/dL (83-110); Potassium 4.0 mmol/L (3.5-5.1); Sodium 143 mmol/L (136-145)
[2025-06-29] MEDS: QUEtiapine 25 MG TAB PO SCH (00:58)
[2025-06-29 06:36] LABS: #Basophils Less than 0.03 10x3/uL (0.0-0.2); #Eosinophils 0.03 10x3/uL (0.0-0.7); #Monocytes 0.99 10x3/uL (0.11-0.59); #Neutrophils 10.54 10x3/uL (1.40-6.50); %Basophils 0.1 % (0.0-1.0); %Eosinophils 0.2 % (0.0-10.0); %Lymphocytes 14.6 % (21.0-51.0); %Monocytes 7.3 % (0.0-10.0); %Neutrophils 77.5 % (42.0-75.0); Hematocrit 29.6 % (36.0-47.0); Hemoglobin 9.8 g/dL (12.0-16.0); Mean Corpuscular Hemoglobin 21.9 pg (27.0-31.0); Mean Corpuscular Volume 66.1 fL (78.0-98.0); Platelet Count 282 10x3/uL (130-400); Red Blood Cell (RBC) Count 4.48 mill/uL (4.20-5.40); White Blood Cell (WBC) Count 13.60 10x3/uL (4.8-10.8)
[2025-06-29 06:41] LABS: Anion Gap 13 mmol/L (10-20); BUN (Urea Nitrogen) 13 mg/dL (9.8-20.1); Calc. Creatinine Clearance 38 mL/min (70-130); Calcium 10.4 mg/dL (7.8-10.44); Carbon Dioxide 21 mmol/L (23-31); Chloride 108 mmol/L (98-107); Glucose 158 mg/dL (83-110); Potassium 4.1 mmol/L (3.5-5.1); Sodium 138 mmol/L (136-145)
[2025-06-30 06:12] LABS: #Basophils Less than 0.03 10x3/uL (0.0-0.2); #Eosinophils 0.17 10x3/uL (0.0-0.7); #Monocytes 0.74 10x3/uL (0.11-0.59); #Neutrophils 5.53 10x3/uL (1.40-6.50); %Basophils 0.1 % (0.0-1.0); %Eosinophils 2.0 % (0.0-10.0); %Lymphocytes 24.7 % (21.0-51.0); %Monocytes 8.6 % (0.0-10.0); %Neutrophils 64.3 % (42.0-75.0); Hematocrit 24.2 % (36.0-47.0); Hemoglobin 7.9 g/dL (12.0-16.0); Mean Corpuscular Hemoglobin 22.1 pg (27.0-31.0); Mean Corpuscular Volume 67.8 fL (78.0-98.0); Platelet Count 257 10x3/uL (130-400); Red Blood Cell (RBC) Count 3.57 mill/uL (4.20-5.40); White Blood Cell (WBC) Count 8.61 10x3/uL (4.8-10.8)
[2025-06-30 06:26] LABS: Anion Gap 13 mmol/L (10-20); BUN (Urea Nitrogen) 18 mg/dL (9.8-20.1); Calc. Creatinine Clearance 39 mL/min (70-130); Calcium 10.7 mg/dL (7.8-10.44); Carbon Dioxide 25 mmol/L (23-31); Chloride 110 mmol/L (98-107); Glucose 74 mg/dL (83-110); Potassium 3.9 mmol/L (3.5-5.1); Sodium 144 mmol/L (136-145)
[2025-06-30 06:30] LABS: Anisocytosis MODERATE=16-30 cells HPF (0-5); Microcytosis SLIGHT = 6-15 cells HPF (0-5); Platelet Adequacy Comment Platelets Normal; Polychromasia SLIGHT = 2-3 cells HPF (0-2); Schistocytes SLIGHT = 2-5 cells HPF (0-1); Target Cells SLIGHT = 2-5 cells HPF (0-1)
[2025-06-30] MEDS ORDERED: Pantoprazole 40 MG GRANULES PACKET PO SCH (09:00)
[2025-06-30] MEDS: Lansoprazole 30 MG/10 ML UDCUP PO SCH (10:07)
[2025-07-01 06:00] LABS: Anion Gap 16 mmol/L (10-20); BUN (Urea Nitrogen) 18 mg/dL (9.8-20.1); Calc. Creatinine Clearance 42 mL/min (70-130); Calcium 10.3 mg/dL (7.8-10.44); Carbon Dioxide 21 mmol/L (23-31); Chloride 107 mmol/L (98-107); Glucose 230 mg/dL (83-110); Magnesium 1.3 mg/dL (1.6-2.6); Potassium 4.0 mmol/L (3.5-5.1); Sodium 140 mmol/L (136-145)
[2025-07-01 06:06] LABS: #Basophils 0.03 10x3/uL (0.0-0.2); #Eosinophils 0.07 10x3/uL (0.0-0.7); #Monocytes 0.78 10x3/uL (0.11-0.59); #Neutrophils 9.81 10x3/uL (1.40-6.50); %Basophils 0.2 % (0.0-1.0); %Eosinophils 0.5 % (0.0-10.0); %Lymphocytes 16.7 % (21.0-51.0); %Monocytes 6.0 % (0.0-10.0); %Neutrophils 75.7 % (42.0-75.0); Hematocrit 27.1 % (36.0-47.0); Hemoglobin 8.7 g/dL (12.0-16.0); Mean Corpuscular Hemoglobin 22.1 pg (27.0-31.0); Mean Corpuscular Volume 69.0 fL (78.0-98.0); Platelet Count 352 10x3/uL (130-400); Red Blood Cell (RBC) Count 3.93 mill/uL (4.20-5.40); White Blood Cell (WBC) Count 12.97 10x3/uL (4.8-10.8)
[2025-07-01] MEDS: Magnesium 2 GM/50 ML(in water) 2 GM in Premix 1 BAG IVPB SCH (06:24)
[2025-07-01] MEDS ORDERED: Electrolyte Replacement Protocol 1 EACH FS SCH (10:15)
[2025-07-01] MEDS ORDERED: PHOS-NAK 1 PKT PACK PO PRN (11:15)
[2025-07-01] MEDS ORDERED: Potassium Chloride 20 MEQ in Premix 1 BAG IVPB PRN (11:15)
[2025-07-01] MEDS: Magnesium 2 GM/50 ML(in water) 2 GM in Premix 1 BAG IVPB PRN (11:59)
[2025-07-01 20:58] LABS: Bacteria/HPF 4+ HPF (None Seen); CAUTI Indications for Culture Alt mental st,lethar; Glucose, Urine (Dipstick) Greater than 1000 mg/dL (Negative); Leukocyte 500 Leu/uL (Negative); Protein, Urine (Dipstick) 10 mg/dL (Neg-Trace); Specific Gravity, Urine 1.013 (1.002-1.036); WBC/HPF Greater than 50 HPF (0-3)
[2025-07-01 20:59] LABS: Urine Culture Reflex Yes Yes
[2025-07-01] MEDS: cefTRIAXone\\ROCEPHIN 1 GM in Sodium Chloride 0.9% 100 ML IVPB SCH (22:59)
[2025-07-02 05:17] LABS: #Basophils 0.03 10x3/uL (0.0-0.2); #Eosinophils 0.11 10x3/uL (0.0-0.7); #Monocytes 1.15 10x3/uL (0.11-0.59); #Neutrophils 10.13 10x3/uL (1.40-6.50); %Basophils 0.2 % (0.0-1.0); %Eosinophils 0.8 % (0.0-10.0); %Lymphocytes 17.0 % (21.0-51.0); %Monocytes 8.3 % (0.0-10.0); %Neutrophils 73.2 % (42.0-75.0); Hematocrit 21.8 % (36.0-47.0); Hemoglobin 6.9 g/dL (12.0-16.0); Mean Corpuscular Hemoglobin 22.0 pg (27.0-31.0); Mean Corpuscular Volume 69.4 fL (78.0-98.0); Platelet Count 328 10x3/uL (130-400); Red Blood Cell (RBC) Count 3.14 mill/uL (4.20-5.40); White Blood Cell (WBC) Count 13.85 10x3/uL (4.8-10.8)
[2025-07-02 05:23] LABS: ALT (SGPT) 31 U/L (Less than 34); AST (SGOT) 45 U/L (11-34); Albumin 2.4 g/dL (3.1-4.5); Alkaline Phosphatase 34 U/L (40-110); Anion Gap 6 mmol/L (10-20); BUN (Urea Nitrogen) 19 mg/dL (9.8-20.1); Bilirubin, Total 0.2 mg/dL (0.3-1.2); Calc. Creatinine Clearance 46 mL/min (70-130); Calcium 9.9 mg/dL (7.8-10.44); Carbon Dioxide 29 mmol/L (23-31); Chloride 112 mmol/L (98-107); Globulin 2.7 g/dL (2.4-3.5); Glucose 124 mg/dL (83-110); Potassium 3.3 mmol/L (3.5-5.1); Sodium 144 mmol/L (136-145)
[2025-07-02 05:40] LABS: Anisocytosis SLIGHT = 6-15 cells HPF (0-5); Burr Cells SLIGHT = 2-5 cells HPF (0-1); Microcytosis SLIGHT = 6-15 cells HPF (0-5); Platelet Adequacy Comment Platelets Normal; Poikilocytosis SLIGHT = 6-15 cells HPF (0-5); Polychromasia SLIGHT = 2-3 cells HPF (0-2); Schistocytes SLIGHT = 2-5 cells HPF (0-1); Target Cells SLIGHT = 2-5 cells HPF (0-1)
[2025-07-04 11:36] VITALS: BP 114/75; TEMP 99
== END 2025-07-04 13:45 | disposition hospice, home (50) | DRG 377 ==
LOC: ERS 07:50 → ERHOLD 14:02 → SURG B 17:41 → OBSVTOIN 06-25 12:13
PROVIDERS: ADMIT Internal Medicine; ATTEND Internal Medicine
PROC: 0DJ08ZZ Inspection of Upper Intestinal Tract, Via Natural or Artificial Opening Endoscopic (ICD-10-PCS; principal; 2025-06-25)
PROC: 30233N1 Transfusion of Nonautologous Red Blood Cells into Peripheral Vein, Percutaneous Approach (ICD-10-PCS; 2025-06-26)
PROC: 3E03329 Introduction of Other Anti-infective into Peripheral Vein, Percutaneous Approach (ICD-10-PCS; 2025-07-01)
DX: K92.2 Gastrointestinal hemorrhage, unspecified (principal); E43 Unspecified severe protein-calorie malnutrition; D62 Acute posthemorrhagic anemia; E87.0 Hyperosmolality and hypernatremia; Z66 Do not resuscitate; Z51.5 Encounter for palliative care; I10 Essential (primary) hypertension; E11.9 Type 2 diabetes mellitus without complications; E78.5 Hyperlipidemia, unspecified; Z74.01 Bed confinement status; Z88.8 Allergy status to other drugs, medicaments and biological substances; Z98.890 Other specified postprocedural states; K44.9 Diaphragmatic hernia without obstruction or gangrene; E87.6 Hypokalemia; B37.9 Candidiasis, unspecified; R33.9 Retention of urine, unspecified; G30.9 Alzheimer's disease, unspecified; F02.80 Dementia in other diseases classified elsewhere, unspecified severity, without behavioral disturbance, psychotic disturbance, mood disturbance, and anxiety; R13.10 Dysphagia, unspecified; Z79.899 Other long term (current) drug therapy; Z79.82 Long term (current) use of aspirin
CPT/HCPCS: 36415; 36416; 36430; 36556; 74177; 80048; 80053; 81001; 82728; 83540; 83550; 83605; 83690; 83735; 84484; 85025; 85060; 85610; 85730; 86850; 86900; 86901; 87077; 87086; 87186; 93005; 93010; 96361; 96374; J0696; J1650; J1815; J2470; J2704; J2916; J3475; J7030; J7050; J7070; J7120; P9016; Q9967